=== PATIENT | female | born 1995 | race American Indian/Alaskan Native ===

== ENCOUNTER 2017-04-19 23:20 | Emergency (ER) | payer MEDICAID ==
[2017-04-20] MEDS ORDERED: BENADRYL ONE (00:09)
[2017-04-20] MEDS ORDERED: ATIVAN ONE (00:10)
[2017-04-20] MEDS ORDERED: HALDOL ONE (00:10)
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
[2017-04-20] MEDS ORDERED: ATIVAN IM ONE (00:46)
[2017-04-20] MEDS ORDERED: BENADRYL IM ONE (00:46)
[2017-04-20] MEDS ORDERED: HALDOL IM ONE (00:48)
[2017-04-20 00:59] LABS: Basophils % (Auto) 0.6 % (0.0-1.8); Eosinophils % (Auto) 1.1 % (0.0-4.3); Hematocrit 38.5 % (30.3-42.9); Hemoglobin 12.3 gm/dl (10.1-14.3); Mean Corpuscular HGB Conc 32 % (30-34); Mean Corpuscular Volume 80 fl (79-97); Platelet Count 182 K/mm3 (140-440); Red Cell Distribution Width 16.8 % (13.2-15.2); White Blood Count 8.3 K/mm3 (4.5-11.0)
[2017-04-20 01:08] LABS: Mean Corpuscular Hemoglobin 26 pg (28-32)
[2017-04-20 01:20] LABS: Alanine Aminotransferase 15 units/L (7-56); Albumin 4.6 g/dL (3.9-5); Albumin/Globulin Ratio 1.4 %; Alkaline Phosphatase 130 units/L (35-129); Anion Gap 27 mmol/L; BUN/Creatinine Ratio 14; Blood Urea Nitrogen 14 mg/dL (7-17); Calcium 8.3 mg/dL (8.4-10.2); Carbon Dioxide 18 mmol/L (22-30); Glucose 97 mg/dL (65-100); Potassium 3.8 mmol/L (3.6-5.0); Sodium 142 mmol/L (137-145); Total Protein 7.8 g/dL (6.3-8.2)
[2017-04-20 01:26] LABS: Lithium 0.1 mmol/L (0.0-1.2)
[2017-04-20 01:29] LABS: Salicylate < 0.3 mg/dL (2.8-20.0)
[2017-04-20 03:34] LABS: Urine Drugs of Abuse Note Disclamer
--- NOTE | 2017-04-20 12:19 | Consultation ---
History of Present Illness - Reason for Consult Consult date: 04/20/17 Reason for consult: Mental Health Evaluation Requesting physician: OLEGARIO ARROYO III - Chief Complaint Chief complaint: "Patient mumbling" - History of Present Psychiatric Illness Patient is a 22-year-old female that was brought in by EMS and police secondary to hostile towards police and EMS. Today patient is calm, but lethargic during the assessment. She was able to answer a few questions when asked. Patient would wake up and fall asleep multiple during the interview. No gestures of SI/ HI's. Medications and Allergies Allergies Allergy/AdvReac Type Severity Reaction Status Date / Time shellfish derived AdvReac Swelling Verified 03/15/13 22:40 Past psychiatric history - Past Medical History Past Medical History: other (Unable to obtain) Past Surgical History: Other (Unable to obtain) - past Psychiatric treatment and history psychiatric treatment history: Unable to obtain a psy hx and a fam psy hx. - Social History Social history: other (Unable to obtain) Mental Status Exam - Vital signs Last Vital Signs Temp 98.3 F 04/20/17 00:29 Pulse 96 H 04/20/17 00:29 Resp 16 04/20/17 03:37 BP 139/72 04/20/17 00:29 Pulse Ox 98 04/20/17 03:37 - Exam Narrative exam: MSE: Appearance: calm Behavior: poor eye contact Speech: regular rate and tone Mood: lethargic, drowsy Affect: flat Thought Process: unable to assess Thought Content: no gestures of SI/HI's and AVH's Motor Activity: lying on stretcher Cognition: A/O x2 Insight: limited Judgment: limited Results Result Diagrams: 04/20/17 00:30 04/20/17 00:30 Abnormal lab results 04/20/17 04/20/17 04/20/17 Range/Units 00:30 00:30 00:30 MCH 26 L (28-32) pg RDW 16.8 H (13.2-15.2) % Lymph % (Auto) 53.9 H (13.4-35.0) % Seg Neutrophils % 37.9 L (40.0-70.0) % Carbon Dioxide 18 L (22-30) mmol/L Calcium 8.3 L (8.4-10.2) mg/dL Alkaline Phosphatase 130 H (35-129) units/L Salicylates < 0.3 L (2.8-20.0) mg/dL Plasma/Serum Alcohol (0-0.07) gm% 04/20/17 Range/Units 00:30 MCH (28-32) pg RDW (13.2-15.2) % Lymph % (Auto) (13.4-35.0) % Seg Neutrophils % (40.0-70.0) % Carbon Dioxide (22-30) mmol/L Calcium (8.4-10.2) mg/dL Alkaline Phosphatase (35-129) units/L Salicylates (2.8-20.0) mg/dL Plasma/Serum Alcohol 0.28 H (0-0.07) gm% All other labs normal. Assessment and Plan Assessment and plan: Impression: Alcohol Intoxication (0.28). Today patient is calm, but lethargic during the assessment. Recommendation/Plan: Continue 1013 and gather collateral to determine proper treatment and dispo.
[2017-04-20] MEDS ORDERED: DILAUDID ONE (12:36)
[2017-04-20] MEDS ORDERED: NACL 0.9% 1000 ML 0 ML ONE (12:36)
[2017-04-21 02:34] VITALS: BP 122/69
== END 2017-04-21 08:05 ==
LOC: ED 23:20 → EEVIPCON 23:20 → ED 04-21 08:05
DX: R45.851 Suicidal ideations (principal); R45.850 Homicidal ideations; F91.1 Conduct disorder, childhood-onset type; Z91.013 Allergy to seafood
CPT/HCPCS: 36415; 80048; 80053; 80178; 80307; 81025; 84443; 84703; 85025; 96372; 99285; G0480; J1200; J1630; J2060; 80320; J1170; J7030

== ENCOUNTER 2020-05-03 20:44 | Emergency (ER) | payer SELFPAY ==
[2020-05-03 22:24] VITALS: BP 142/90
[2020-05-03 22:59] LABS: Hematocrit 37.1 % (30.3-42.9); Hemoglobin 12.3 gm/dl (10.1-14.3); Mean Corpuscular HGB Conc 33 % (30-34); Mean Corpuscular Volume 78 fl (79-97); Platelet Count 216 K/mm3 (140-440); Red Blood Count 4.74 M/mm3 (3.65-5.03)
[2020-05-03 23:15] LABS: Alanine Aminotransferase 21 units/L (7-56); Albumin 4.5 g/dL (3.9-5); BUN/Creatinine Ratio 17; Blood Urea Nitrogen 12 mg/dL (7-17); Calcium 9.9 mg/dL (8.4-10.2); Hemolysis Index 3
[2020-05-04] MEDS ORDERED: KETOROLAC 30 MG/1 ML INJ IV ONE (00:09)
[2020-05-04] MEDS ORDERED: dexAMETHasone 20 MG/5 ML VIAL IV ONE (00:09)
[2020-05-04] MEDS ORDERED: ONDANSETRON 4 MG/2 ML INJ IV ONE (00:09)
[2020-05-04 00:38] LABS: Alanine Aminotransferase 20 units/L (7-56); Albumin 4.4 g/dL (3.9-5)
[2020-05-04 00:45] LABS: Bilirubin,Direct < 0.2 mg/dL (0-0.2)
--- NOTE | 2020-05-04 00:49 | Emergency Department Report ---
ED General Adult HPI - General Chief complaint: Dental/Oral Stated complaint: TOOTHACHE/SWOLLEN PUI?: No Source: patient Mode of arrival: Ambulatory Limitations: No Limitations - History of Present Illness Initial comments: Patient is a 25-year-old -Irish female with no past medical history who presents to the ED with complaint of acute onset persistent painful swollen left mandibular premolar molar toothaches and swollen painful left mandibular gingiva with swollen cheeks for the last 1 week. Patient states that she has been taking yftu-hvr-bbbbwiw medications with no relief. Patient states that in the last 12 hours, the cheek swelling and the gingival swelling and pain have worsened such that she is unable to speak or eat anything because of pain. Patient denies dizziness, syncope, fever, chills, nausea, vomiting, chest pain, shortness of breath, sore throat, traumatic injury, change in vision, dysphagia or dysphonia. MD Complaint: Left mandibular gum pain and swelling, toothache and swollen face -: Sudden, week(s) (1) Location: mouth Radiation: non-radiation Severity scale (0 -10): 9 Quality: aching, sharp Consistency: constant Improves with: none Worsens with: eating, other (Speech) Associated Symptoms: denies other symptoms, headaches, malaise. denies: cough, diaphoresis, fever/chills, loss of appetite, nausea/vomiting, rash, seizure, shortness of breath, syncope, weakness - Related Data Previous Rx's Medication Instructions Recorded Last Taken Type Ibuprofen [Ibuprofen 800] 800 mg PO Q6H PRN #10 tablet 05/21/18 Unknown Rx Acetaminophen/Codeine [Tylenol 1 tab PO Q6H PRN #12 tab 05/04/20 Unknown Rx /Codeine # 3 tab] Clindamycin [Clindamycin CAP] 300 mg PO Q6HR #80 capsule 05/04/20 Unknown Rx Ketorolac [Toradol] 10 mg PO Q8H PRN #20 tablet 05/04/20 Unknown Rx Ondansetron [Zofran Odt] 4 mg PO Q6HR PRN #15 tab.rapdis 05/04/20 Unknown Rx predniSONE [Deltasone] 40 mg PO QDAY #10 tab 05/04/20 Unknown Rx Allergies Allergy/AdvReac Type Severity Reaction Status Date / Time shellfish derived AdvReac Swelling Verified 03/15/13 22:40 ED Review of Systems ROS: Stated complaint: TOOTHACHE/SWOLLEN Other details as noted in HPI Constitutional: denies: chills, fever Eyes: denies: eye pain, eye discharge, vision change ENT: dental pain (Swollen, painful left mandibular gingiva; severely painful left mandibular premolar and molar teeth). denies: ear pain, throat pain, hearing loss, epistaxis, congestion Respiratory: denies: cough, shortness of breath, wheezing Cardiovascular: denies: chest pain, palpitations Endocrine: no symptoms reported Gastrointestinal: denies: abdominal pain, nausea, diarrhea Genitourinary: denies: urgency, dysuria, discharge Musculoskeletal: denies: back pain, joint swelling, arthralgia Skin: denies: rash, lesions Neurological: denies: headache, weakness, paresthesias Psychiatric: denies: anxiety, depression Hematological/Lymphatic: denies: easy bleeding, easy bruising ED Past Medical Hx - Past Medical History Previous Medical History?: No Hx Hypertension: No Hx Diabetes: No Hx Deep Vein Thrombosis: No Hx Renal Disease: No Hx Sickle Cell Disease: No Hx Seizures: No Hx Asthma: No Hx HIV: No - Surgical History Additional Surgical History: Right hip - Social History Smoking Status: Never Smoker Substance Use Type: None - Medications Home Medications: Home Medications Medication Instructions Recorded Confirmed Last Taken Type Ibuprofen [Ibuprofen 800] 800 mg PO Q6H PRN #10 tablet 05/21/18 Unknown Rx Acetaminophen/Codeine [Tylenol 1 tab PO Q6H PRN #12 tab 05/04/20 Unknown Rx /Codeine # 3 tab] Clindamycin [Clindamycin CAP] 300 mg PO Q6HR #80 capsule 05/04/20 Unknown Rx Ketorolac [Toradol] 10 mg PO Q8H PRN #20 tablet 05/04/20 Unknown Rx Ondansetron [Zofran Odt] 4 mg PO Q6HR PRN #15 tab.rapdis 05/04/20 Unknown Rx predniSONE [Deltasone] 40 mg PO QDAY #10 tab 05/04/20 Unknown Rx ED Physical Exam - General Limitations: No Limitations General appearance: alert, in no apparent distress - Head Head exam: Present: atraumatic, normocephalic, normal inspection - Eye Eye exam: Present: normal appearance, PERRL, EOMI Pupils: Present: normal accommodation - ENT ENT exam: Present: mucous membranes moist, TM's normal bilaterally, normal external ear exam, other (Swollen, severely tender left mandibular gingiva with severely tender left mandibular premolar and molar teeth) - Neck Neck exam: Present: normal inspection, full ROM, lymphadenopathy. Absent: tenderness - Respiratory Respiratory exam: Present: normal lung sounds bilaterally. Absent: respiratory distress, wheezes, rales, rhonchi, chest wall tenderness, accessory muscle use, decreased breath sounds, prolonged expiratory - Cardiovascular Cardiovascular Exam: Present: regular rate, normal rhythm, normal heart sounds. Absent: systolic murmur, diastolic murmur, rubs, gallop - GI/Abdominal GI/Abdominal exam: Present: soft, normal bowel sounds. Absent: tenderness, guarding, rebound, hyperactive bowel sounds, hypoactive bowel sounds, mass - Extremities Exam Extremities exam: Present: normal inspection, full ROM, normal capillary refill - Back Exam Back exam: Present: normal inspection, full ROM. Absent: tenderness, CVA tenderness (R), CVA tenderness (L), muscle spasm, paraspinal tenderness, vertebral tenderness - Neurological Exam Neurological exam: Present: alert, oriented X3, CN II-XII intact, normal gait, reflexes normal - Psychiatric Psychiatric exam: Present: normal affect, normal mood - Skin Skin exam: Present: warm, dry, intact, normal color. Absent: rash ED Course Vital Signs 05/03/20 22:17 Temperature 99.1 F Pulse Rate 76 Respiratory 20 Rate Blood Pressure 142/90 O2 Sat by Pulse 98 Oximetry ED Medical Decision Making - Lab Data Result diagrams: 05/03/20 22:30 05/03/20 22:30 - Radiology Data Radiology results: report reviewed Findings [address] [address] Cat Scan Report Signed Patient: JOSE ALEXANDER MR#: [id number] 35 : 1995 Acct:[id number] Age/Sex: 25 / F ADM Date: 05/03/20 Loc: ED Attending Dr: Ordering Physician: WILLIS REAVES Date of Service: 05/04/20 Procedure(s): CT facial bones w con Accession Number(s): [id number] cc: WILLIS REAVES CT facial bones w con INDICATION / CLINICAL INFORMATION: 25 years Female; Suspected gingival abscess, facial swelling. TECHNIQUE: Thin cut axial images obtained. Sagittal and coronal reconstructions performed. All CT scans at this location are performed using CT dose reduction for ALARA by means of automated exposure control. COMPARISON: None available. FINDINGS: There is a periapical lucency associated with the first molar along the mandibular alveolar ridge on the left. The lucency extends through the outer cortex of the mandible. Significant soft tissue swelling is seen adjacent to this region. No well circumscribed abscess is seen, although significant surrounding cellulitic process is noted. Thickening in the adjacent platysma muscle seen. Prominent lymph nodes are identified, which presumably reactive. No signs of suppurative lymph node seen. Parotid and submandibular glands are grossly normal. Expected location of the sublingual glands are unremarkable. Visualized paranasal sinuses are essentially clear. [place] tonsillar tissue, as well as lingual tonsillar and adenoidal tissue, are mildly prominent- presumably reactive in a patient this age. IMPRESSION: 1. Presumed periapical abscess associated with the first molar along the left mandibular alveolar ridge. Significant soft tissue swelling seen in the adjacent soft tissues, although no well- circumscribed abscess has formed. Signer Name: Tristan Barajas MD, III Signed: 05/04/2020 1:38 AM Workstation Name: [id number] Transcribed By: HR Dictated By: Tristan Barajas MD Electronically Authenticated By: Tristan Barajas MD Signed Date/Time: 05/04/20137 DD/ 8 TD/TT: - Medical Decision Making This is a 25-year-old -Irish female with no past medical history who presents to the ED with complaint of acute onset persistent painful swollen left mandibular premolar molar toothaches and swollen painful left mandibular gingiva with swollen cheeks for the last 1 week. Patient states that she has been taking wkew-byq-mlgoqdy medications with no relief. Patient states that in the last 12 hours, the cheek swelling and the gingival swelling and pain have worsened such that she is unable to speak or eat anything because of pain. In the ED, patient is alert and oriented x3 and is not in distress with normal vital signs. Patient was treated for pain in the ED. Patient also receive initial parenteral antibiotics clindamycin 900 mg IV x1, also received Decadron and pain medications. Lab test results were reviewed and are all nonactionable. Facial CT scan with contrast - Differential Diagnosis Dental abscess, gingivitis, sinus infection, dental caries Critical care attestation.: If time is entered above; I have spent that time in minutes in the direct care of this critically ill patient, excluding procedure time. ED Disposition Clinical Impression: Dental abscess, Acute gingivitis, Dental caries Disposition: TO HOME OR SELFCARE Is pt being admited?: No Does the pt Need Aspirin: No Condition: Stable Additional Instructions: All lab test results are unremarkable. Facial CT scan with contrast showed presumed periapical abscess associated with the first molar along the left mandibular alveolar ridge. Significant soft tissue swelling seen in the adjacent soft tissues, although no well-circumscribed abscess has formed. Therefore take pain medications as well as antibiotics with food, drink plenty of fluids and follow-up with your dentist in 7 to 10 days for reevaluation. Return to the ED immediately if symptoms get worse. Prescriptions: Clindamycin [Clindamycin CAP] 300 mg PO Q6HR #80 capsule predniSONE [Deltasone] 40 mg PO QDAY #10 tab Ketorolac [Toradol] 10 mg PO Q8H PRN #20 tablet PRN Reason: Pain Acetaminophen/Codeine [Tylenol /Codeine # 3 tab] 1 tab PO Q6H PRN #12 tab PRN Reason: Pain , Severe (7-10) Ondansetron [Zofran Odt] 4 mg PO Q6HR PRN #15 tab.rapdis PRN Reason: Nausea Referrals: [facility] [Outside] - 3-5 Days [facility] [Outside] - 3-5 Days Time of Disposition: 00:50 Print Language: DANISH
--- NOTE | 2020-05-04 01:42 | Cat Scan Report ---
CT facial bones w con INDICATION / CLINICAL INFORMATION: 25 years Female; Suspected gingival abscess, facial swelling. TECHNIQUE: Thin cut axial images obtained. Sagittal and coronal reconstructions performed. All CT scans at this location are performed using CT dose reduction for ALARA by means of automated exposure control. COMPARISON: None available. FINDINGS: There is a periapical lucency associated with the first molar along the mandibular alveolar ridge on the left. The lucency extends through the outer cortex of the mandible. Significant soft tissue swell ing is seen adjacent to this region. No well circumscribed abscess is seen, although significant surr ounding cellulitic process is noted. Thickening in the adjacent platysma muscle seen. Prominent lymph nodes are identified, which presumably reactive. No signs of suppurative lymph node s een. Parotid and submandibular glands are grossly normal. Expected location of the sublingual glands are u nremarkable. Visualized paranasal sinuses are essentially clear. [place] tonsillar tissue, as well as lingual tonsillar and adenoidal tissue, are mildly prominent-pr esumably reactive in a patient this age. IMPRESSION: 1. Presumed periapical abscess associated with the first molar along the left mandibular alveolar rid ge. Significant soft tissue swelling seen in the adjacent soft tissues, although no well-circumscribe d abscess has formed. Signer Name: Tristan Barajas MD, III Signed: 05/04/2020 1:38 AM Workstation Name: [id number]
== END 2020-05-04 02:00 | disposition home or self-care (01) ==
LOC: ED 20:44
DX: K04.7 Periapical abscess without sinus (principal); K02.9 Dental caries, unspecified; K05.00 Acute gingivitis, plaque induced; Z98.890 Other specified postprocedural states; Z79.1 Long term (current) use of non-steroidal anti-inflammatories (NSAID); Z79.899 Other long term (current) drug therapy; Z91.013 Allergy to seafood
CPT/HCPCS: 36415; 70487; 80053; 80076; 85027; 96365; 96375; 99284; J1100; J1885; J2405; Q9967